=== PATIENT | male | born 2005 | race Caucasian/White ===

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

== ENCOUNTER → 2025-07-16 | Outpatient (REF) | payer OTHER ==
[2025-07-16 18:59] LABS: Trichomonas vaginalis (AMP) NOT DETECTED (NEGATIVE)
[2025-07-16 19:22] LABS: GC DNA AMPLIFICATION NEGATIVE (NEGATIVE)
== END ==
LOC: M LAB REF 17:08
PROVIDERS: ATTEND Physician Assistant Medical
DX: Z20.2 Contact with and (suspected) exposure to infections with a predominantly sexual mode of transmission (principal)